=== PATIENT | male | born 1950 | race Caucasian/White ===

== ENCOUNTER 2018-12-11 07:30 | Inpatient (IN) | payer BC, MEDICARE ==
[2018-12-11] MEDS ORDERED: Celecoxib 200 MG Cap PO ONE (08:15)
[2018-12-11] MEDS ORDERED: Acetaminophen 500 MG Tab PO ONE (08:15)
[2018-12-11] MEDS ORDERED: Scopolamine 1.5 MG Transdermal Patch TRDERM ONE (08:15)
[2018-12-11] MEDS ORDERED: Gabapentin 300 MG Cap PO ONE (08:15)
[2018-12-11] MEDS ORDERED: Dextrose 5%-Lactated Ringers 1,000 ML IV SCH ×2 (08:45→15:00)
[2018-12-11] MEDS ORDERED: Albuterol/Ipratropium 3.0-0.5 MG/3 ML Neb Soln NEB ONE (09:00)
[2018-12-11] MEDS ORDERED: cefOXitin 2 GM in Sodium Chloride 0.9% 50 ML IV ONE ×2 (09:30→09:45)
[2018-12-11] MEDS ORDERED: Rocuronium 50 MG/5 ML Vial ONE ×2 (09:34→11:26)
[2018-12-11] MEDS ORDERED: Glycopyrrolate 0.2 MG/ML 5 ML MDV ONE (09:34)
[2018-12-11] MEDS ORDERED: Ondansetron 4 MG/2 ML SDV ONE (09:34)
[2018-12-11] MEDS ORDERED: Propofol 200 MG/20 ML SDV ONE (09:34)
[2018-12-11] MEDS ORDERED: Succinylcholine 200 MG/10 ML MDV ONE (09:34)
[2018-12-11] MEDS ORDERED: Dexamethasone 4 MG/ML SDV ONE (09:34)
[2018-12-11] MEDS ORDERED: fentaNYL 250 MCG/5 ML SDV ONE (09:34)
[2018-12-11] MEDS ORDERED: Neostigmine Methylsulfate 1 MG/ML 5 ML Syringe ONE (09:34)
[2018-12-11] MEDS ORDERED: Lidocaine 2% 100 MG/5 ML Syringe IVPUSH SCH (10:00)
[2018-12-11] MEDS ORDERED: Ketamine 50 MG in Sodium Chloride 0.9% 49.5 ML IV SCH (10:00)
[2018-12-11] MEDS ORDERED: Lidocaine 0.4%/D5W 2 GM/500 ML BAG IV SCH ×2 (10:00→15:15)
[2018-12-11] MEDS ORDERED: Ketamine 500 MG/5 ML MDV IV SCH (10:00)
[2018-12-11] MEDS ORDERED: Lactated Ringers 1,000 ML ONE ×2 (10:22→15:19)
[2018-12-11] MEDS ORDERED: cefOXitin 2 GM Vial ONE (11:12)
[2018-12-11] MEDS ORDERED: Scopolamine 1.5 MG Transdermal Patch ONE (14:06)
[2018-12-11] MEDS ORDERED: diphenhydrAMINE 50 MG/ML SDV IVPUSH PRN (14:51)
[2018-12-11] MEDS ORDERED: Metoclopramide 10 MG/2 ML SDV IVPUSH PRN (14:51)
[2018-12-11] MEDS ORDERED: Ondansetron 4 MG/2 ML SDV IVPUSH PRN (14:51)
[2018-12-11] MEDS ORDERED: Insulin Lispro 100 Unit/ML 3 ML KwikPen SUBCUT PRN (14:51)
[2018-12-11] MEDS ORDERED: Labetalol 20 MG/4 ML Syringe IVPUSH PRN (14:51)
[2018-12-11] MEDS ORDERED: hydrOXYzine HCl 100 MG/2 ML SDV IM PRN (14:51)
[2018-12-11] MEDS: Lactated Ringers 1,000 ML IV SCH (15:31)
[2018-12-11] MEDS ORDERED: MVI, Adult with Vitamin K 10 ML, Thiamine 200 MG, Chromium/Copper/Mang/Selen/Zn 1 ML in... IV SCH ×4 (16:00)
[2018-12-11] MEDS ORDERED: Pantoprazole 40 MG Vial IVPUSH SCH (16:00)
[2018-12-11] MEDS: Acetaminophen Soln 650 MG/20.3 ML UD Cup PO SCH ×2 (17:00→21:55)
[2018-12-11] MEDS: cefOXitin 2 GM in Sodium Chloride 0.9% 50 ML IV SCH (17:04)
[2018-12-11] MEDS: Heparin Sodium 5,000 Units/ML Vial SUBCUT SCH (17:05)
[2018-12-11] MEDS: Gabapentin 250 MG/5 ML Solution ML 470 ML Bottle PO SCH (20:34)
[2018-12-12] MEDS: cefOXitin 2 GM in Sodium Chloride 0.9% 50 ML IV SCH ×3 (00:35→11:27)
[2018-12-12] MEDS: Lactated Ringers 1,000 ML IV SCH ×2 (01:59→11:23)
[2018-12-12] MEDS: Heparin Sodium 5,000 Units/ML Vial SUBCUT SCH ×3 (02:51→17:07)
[2018-12-12] MEDS ORDERED: Iopamidol 612 MG/ML 50 ML SDV PO STA (04:03)
[2018-12-12] MEDS: Acetaminophen Soln 650 MG/20.3 ML UD Cup PO SCH ×4 (05:04→21:37)
--- NOTE | 2018-12-12 05:36 | CRLCR ---
INDICATION: RNY LEAK CHECK PRELIMINARY IMPRESSIONS: 1. No evidence of contrast extravasation is noted on 2 static submitted images. 2. Surgical drain is present in the left upper quadrant. Agree with preliminary reading. No additional findings. Dictated by: Juan Baker MD @ 12/13/2018 11:30:37 (Electronically Signed)
[2018-12-12] MEDS ORDERED: Ondansetron 4 MG Tab.DIS PO PRN (07:48)
[2018-12-12] MEDS ORDERED: diphenhydrAMINE 25 MG Cap PO PRN (07:50)
[2018-12-12] MEDS ORDERED: Albuterol 8 GM Inhaler INH PRN (08:08)
--- NOTE | 2018-12-12 09:32 | PN ---
DATE OF SERVICE: 12/12/2018 SUBJECTIVE: Juan is postoperative day 1 from Ivelisse-en-Y gastric bypass surgery. His upper GI was normal this morning. His lidocaine was discontinued due to being very sleepy. He has walked once and has sat on the chair for an hour or so during the night. He is voiding without difficulty. Blood sugar is 192 and the last one was 148. He did refuse his heparin. Currently takes Eliquis. REVIEW OF SYSTEMS: Remainder of review of systems negative for any pertinent positives and negatives. OBJECTIVE: GENERAL: Juan Almaguer is a pleasant 68-year-old male. He is sitting up in the chair. VITAL SIGNS: TPR is 99.4, 73, 16. Blood pressure 134/67. HEENT: Negative. NECK: Supple. HEART: Regular rate and rhythm. LUNGS: Clear. ABDOMEN: Dressings dry and intact on CHRISTA drain, drained 84 mL of a light pink drainage. Abdominal binder is on. EXTREMITIES: Without peripheral edema. ASSESSMENT: Diagnostic laparoscopy with laparoscopic Ivelisse-en-Y gastric bypass surgery, liver biopsy, repair of diaphragmatic hernia, excision of mediastinal lipoma, excision of nodule on the surface of the jejunojejunostomy, portal partial gastrectomy with a nodule, excision of the overlying nodule for morbid obesity, hepatomegaly, diaphragmatic hernia, mediastinal lipoma, foreshortened small bowel mesentery, nodule on surface of the proximal jejunum, nodule on proximal aspect of the gastric lesser curvature. Date of surgery 12/11/2018. PLAN: 1. Discontinue D5 LR. 2. Lactated Ringer's at 100 mL per hour. 3. We will continue to take heparin after discussion with Jarad Long MD. 4. Dressing off, may shower. 5. Step 2 gastric bypass diet without cereal. 6. Zofran 4 mg ODT q.4 hours p.r.n. nausea, Lasix 40 mg p.o. daily, and Aldactone 100 mg p.o. daily. 7. Communication order for 3 med cups, 1 q.20 minutes or 3 per hour, record at bedside. 8. Good pulmonary toilet. 9. We will evaluate p.r.n. or in a.m. Charlene Alvarez PA-C /[id number]
[2018-12-12] MEDS: Celecoxib 200 MG Cap PO SCH (09:41)
[2018-12-12] MEDS: Spironolactone 25 MG Tab PO SCH (09:41)
[2018-12-12] MEDS: Metoprolol Succinate 50 MG Tab.ER PO SCH (09:42)
[2018-12-12] MEDS: Furosemide 40 MG Tab PO SCH (09:42)
[2018-12-12] MEDS: SCOPOLAMINE PATCH CHECK TOP SCH (09:43)
[2018-12-12] MEDS: Gabapentin 250 MG/5 ML Solution ML 470 ML Bottle PO SCH ×3 (09:46→20:58)
[2018-12-12] MEDS ORDERED: Pantoprazole 40 MG Delayed-Release Granules 1 Packet PO SCH (16:00)
[2018-12-12] MEDS ORDERED: MVI, Adult with Vitamin K 10 ML, Thiamine 200 MG, Chromium/Copper/Mang/Selen/Zn 1 ML in... IV SCH ×4 (16:00)
[2018-12-12] MEDS ORDERED: Lidocaine 1% 2 ML ONE (22:00)
[2018-12-13] MEDS: Acetaminophen Soln 650 MG/20.3 ML UD Cup PO SCH ×2 (03:01→11:21)
[2018-12-13] MEDS: Heparin Sodium 5,000 Units/ML Vial SUBCUT SCH ×2 (03:01→11:21)
[2018-12-13] MEDS: Lactated Ringers 1,000 ML IV SCH (05:46)
[2018-12-13] MEDS: Spironolactone 25 MG Tab PO SCH (08:49)
[2018-12-13] MEDS: Metoprolol Succinate 50 MG Tab.ER PO SCH (08:49)
[2018-12-13] MEDS: Celecoxib 200 MG Cap PO SCH (08:49)
[2018-12-13] MEDS: Furosemide 40 MG Tab PO SCH (08:54)
[2018-12-13] MEDS: SCOPOLAMINE PATCH CHECK TOP SCH (08:56)
[2018-12-13] MEDS: Gabapentin 250 MG/5 ML Solution ML 470 ML Bottle PO SCH (08:58)
[2018-12-13] MEDS ORDERED: Magnesium Hydroxide 400 MG/5 ML Susp 30 ML Cup PO ONE (09:00)
[2018-12-13] MEDS ORDERED: Cyanocobalamin (Vitamin B12) 1,000 MCG/ML SDV IM ONE (09:00)
--- NOTE | 2018-12-13 09:36 | PN ---
DATE OF SERVICE: 12/13/2018 SUBJECTIVE: Juan is postoperative day 2 following a Ivelisse-en-Y gastric bypass surgery. Blood sugars were 104 and 103. Oral intake 1200. CHRISTA drain put out 60 mL of serosanguineous drainage. Juan has not had a bowel movement yet and is not passing flatus. He has been unsteady when he is up ambulating, requiring the use of the IV pole as well as 1 to 2 assist him. He states this morning that he is getting stronger. REVIEW OF SYSTEMS: Remainder of review of systems negative for any pertinent positives and negatives. OBJECTIVE: GENERAL: Juan Almaguer is a pleasant 68-year-old male. VITAL SIGNS: TPR 97.7, 74, 18 and blood pressure 110/68. HEENT: Negative. NECK: Supple. HEART: Regular rate and rhythm. LUNGS: Clear. ABDOMEN: Dressings dry and intact. Incisions look good. CHRISTA drain as above. Abdominal binder is on. EXTREMITIES: Without peripheral edema. ASSESSMENT: Diagnostic laparoscopy with laparoscopic Ivelisse-en-Y gastric bypass surgery, liver biopsy, repair of diaphragmatic hernia, excision of mediastinal lipoma, excision of nodule surface of the jejunostomy, portal partial gastrectomy with a nodule, excision of the overlying nodule for morbid obesity, hepatomegaly, diaphragmatic hernia, mediastinal lipoma, foreshortened small bowel mesenteric nodule on the surface of proximal jejunum, nodule on proximal aspect of the gastric lesser curvature. Date of surgery 12/11/2018. Surgeon, Jarad Long MD. PLAN: 1. Saline lock IV. 2. Milk of magnesia 30 mL followed by Dulcolax tablets 20 mg 1 hour after. 3. Continue to ambulate short distances. 4. Encouraged to eat slowly and to take tiny sips. 5. Good pulmonary toilet. 6. We will evaluate p.r.n. or in a.m. Charlene Alvarez PA-C /[id number]
[2018-12-13] MEDS ORDERED: Bisacodyl 5 MG Tab PO ONE (10:00)
--- NOTE | 2018-12-14 07:36 | DISCH ---
ADMISSION DIAGNOSES: Morbid obesity, asthma, iron deficiency anemia, hypertension, obstructive sleep apnea, adenocarcinoma of the prostate, depression, hypogonadism, sinus tachycardia, metabolic syndrome, atrial fibrillation, chronic anticoagulation therapy. Elevated liver function tests, BMI is 51.3. DISCHARGE DIAGNOSES: Diagnostic laparoscopy with laparoscopic Ivelisse-en-Y gastric bypass surgery, liver biopsy, repair of diaphragmatic hernia, excision of mediastinal lipoma and excision of nodule surface of the jejunostomy, portal partial gastrectomy with nodule, excision of overlying nodule. Postoperative Diagnoses: 1. Morbid obesity. 2. Hepatomegaly. 3. Diaphragmatic hernia. 4. Mediastinal lipoma. 5. Foreshortened small bowel mesenteric. 6. Nodule on the surface of the proximal jejunum. 7. Nodule on the proximal aspect of the gastric lesser curvature. Date of surgery 12/11/2018. Surgeon, Jarad Long MD. HISTORY: Juan Almaguer is a pleasant 68-year-old male with longstanding history of morbid obesity and increasing comorbidities. After preoperative evaluation and discussion of possible risks and possible complications, he wished to proceed with surgical procedure. HOSPITAL COURSE: Juan had his surgery on 12/11/2018. He had no operative complications. On postoperative day #1, he was started on step 2 gastric bypass diet. His dressing was taken off. He was able to shower. His pain was well managed on postoperative day 2. He had a bowel movement, received vitamin B12 1000 mcg IM injection. He had dietary instruction. Vital signs were stable. Blood sugars were 103 and 104, and he was able to be discharged to home. PHYSICAL EXAMINATION: GENERAL: Rosina is a pleasant 68-year-old male. VITAL SIGNS: Height is 5 feet 6 inches. Weight is 318 pounds. BMI is 51.3. TPR is 97.7, 68, 16 and blood pressure 124/77. HEENT: Negative. NECK: Supple. HEART: Regular rate and rhythm. LUNGS: Clear. ABDOMEN: Sutures intact 4x4 over CHRISTA drain. Abdominal binder is on. EXTREMITIES: Without peripheral edema. DISPOSITION: Discharged to home. CONDITION: Stable and improving. HOME MEDICATIONS: 1. Celebrex 200 mg p.o. daily for 14 days. 2. Eliquis 5 mg oral daily to start as directed by his primary care provider. 3. ProAir HFA 8.5 g inhalation 4 times a day as directed. 4. Protonix 40 mg p.o. daily. 5. Toprol-XL 50 mg p.o. daily. 6. Aldactone 100 mg p.o. daily. 7. Lasix 40 mg p.o. daily. 8. Tylenol 650 mg q.6 hours. DISCHARGE INSTRUCTIONS: Followup appointment with Charlene Alvarez PA-C on 12/25/2018 at 10:15 a.m. Appointment at [place], [place]. Diet: Step 2 gastric bypass diet with no cereal for 2 weeks until 12/25/2018. He is to drink 8 to 10 glasses of water a day. Activity: No lifting greater than 10 pounds for 2 weeks. Walk at least 6 times a day. Driving: Do not drive for 1 week. Shower/bathing: May shower. Notify provider if any fever, increased pain, nausea, or vomiting. Wound incision care: Keep site clean and dry. Wear abdominal binder for 2 weeks and then as desired. Other instruction: Use incentive spirometer 10 times every hour while awake.
--- NOTE | 2018-12-17 15:13 | OR ---
DATE OF PROCEDURE: 12/11/2018 PREOPERATIVE DIAGNOSIS: Morbid obesity. POSTOPERATIVE DIAGNOSES: 1. Morbid obesity. 2. Marked hepatomegaly. 3. Paraesophageal diaphragmatic hernia. 4. Mediastinal lipoma. 5. Foreshortened small bowel mesentery requiring small bowel resection to allow adequate mobility of jejunojejunostomy. 6. Peritoneal nodule on surface of proximal jejunum. 7. Nodule in the proximal aspect of gastric lesser curvature. OPERATIVE PROCEDURES: Diagnostic laparoscopy with: 1. Laparoscopic Ivelisse-en-Y gastric bypass with long-limb gastroenterostomy (13896). 2. Junior-cut needle liver biopsy (54809). 3. Repair of paraesophageal diaphragmatic hernia (05734). 4. Excision of mediastinal lipoma (96635). 5. Excision of nodule on surface of the proximal jejunum (09634). 6. Partial gastrectomy including excision of overlying nodule involving proximal aspect of gastric lesser curvature (85050). ANESTHESIA: General. INDICATION FOR PROCEDURE: This is a 68-year-old male presenting with longstanding morbid obesity and increasingly significant comorbidities. After preoperative evaluation and discussion, he wished to proceed with a gastric bypass procedure. Potential risks of the procedure including bleeding, infection, leaks from various GI tract closures, problems with bowel obstruction over time, as well as the possibility of cardiopulmonary, septic, or hemorrhagic complications leading to were discussed, and the patient wishes to proceed. DETAILS OF PROCEDURE: The patient was taken to the operating room and after general endotracheal anesthesia was induced, the abdomen was prepped and draped. The patient was converted to a lithotomy position. At 15 cm inferior and 5 cm left of the xiphoid process, a transverse incision was made, and the peritoneal cavity entered under direct vision with an Optiview trocar. Bilateral subcostal transversus abdominis plane blocks were then placed and 5 additional trocars were placed across the upper and mid-abdomen. Initial exploration showed marked hepatomegaly and Junior-Cut needle liver biopsies were obtained from the left lobe of the liver. Minimal bleeding from the biopsy sites was controlled with electrocautery. The small bowel was then identified at ligament of Treitz. Roughly 10 cm distal to the ligament of Treitz, the patient was noted to have a small clear nodule on the surface of the jejunum. This was excised and sent for histologic evaluation. This measured mostly around 2 or 3 mm in size. The small bowel was then traced out 150 cm distal to that point, where it was divided transversely with a MICAH stapler. Small bowel was then traced out additional 150 cm, where the [id number] enteroenterostomy was accomplished with an internal firing of the Endo-MICAH 60-mm stapler. Common opening was then closed transversely with the same stapler, and the angles of anastomosis and mesenteric defect approximated with some 0 Ethibond stitch, along with 4 mL of fibrin sealant. The divided end of the Ivelisse limb was then mobilized through an antecolic approach up to the level of the gastroesophageal junction without tension. The liver was then retracted anteriorly. The patient was noted to have a moderate-sized paraesophageal diaphragmatic hernia. This was involving perigastric fat and prolapse of some of the fundus in a plane anterior to the course of the esophagus. This was reduced. The peritoneum overlying was incised and reflected downward. A mediastinal lipoma was encountered, which was excised to allow more satisfactory closure of the crural defect, which was approximated anteriorly with 0 Ethibond sutures reinforced with PTFE pledgets. The patient was also noted to have a nodular lesion at the level of lesser curvature. The gastrointestinal balloon catheter was inflated to 15 mL and pulled up snugly against the EG junction. The point of development of the pouch was noted to be just superior to that nodule. At this point then, pouch was constructed with initial transverse firing of the MICAH stapler at the level of the cauterized kishore, where the lower end of the balloon catheter had been placed, which at that point then removed, and then completed with additional MICAH firings up to and through the angle of His. Upon completion of the staple lines, both were noted to be intact. The nodule was then excised off the surface of the stomach just below the gastric pouch staple line and sent as a separate specimen. On examination of this, it was felt to possibly be a gastrointestinal stromal tumor, which at this size, which was around 8 or 10 mm, it would be always benign, but at some risk for local recurrence. Given this, 1 or 2 cm segment of stomach around that was resected and sent as a separate specimen to provide a more adequate margin away from that nodule in the event that it may in fact be a gastrointestinal stromal tumor. The anvil of a 25-mm EEA stapler was passed through the mouth following its attachment to Ogle sump tube and then brought down into the gastric pouch. The divided end of the Ivelisse limb was then opened and the main body of EEA stapler was passed several centimeters into the Ivelisse limb, brought up the anvil and united with it, thus creating the gastrojejunostomy. Upon removal of the stapler, double donuts of mucosa were noted within it. Small bowel was closed off with a vascular staple line. Gastrojejunostomy was reinforced with some 3-0 Vicryl seromuscular stitch along with fibrin sealant. Leak test was accomplished with injection of 120 mL into the gastric pouch while it was submerged within antibiotic- containing saline solution. No leaks were identified. A single Vineet-Beck drain was then placed through the left lateral trocar site and positioned adjacent to the gastrojejunostomy up to the level of the splenic fossa. With no further problems noted, trocars removed and the peritoneal cavity was deflated. Incisions were closed with 4-0 Vicryl skin stitch and dressing applied. The patient was taken to the recovery room in a satisfactory condition. Jarad Long MD /[id number]
== END 2018-12-13 13:10 | disposition home or self-care (01) | DRG 403 ==
LOC: EDSTATUS 07:30 → JP.SDS 07:48 → JP.SDSSCHI 07:48 → JP.MS 14:18
PROVIDERS: ADMIT Surgery; ATTEND Surgery
PROC: 0D164ZA Bypass Stomach to Jejunum, Percutaneous Endoscopic Approach (ICD-10-PCS; principal; 2018-12-11)
PROC: 0DB64ZZ Excision of Stomach, Percutaneous Endoscopic Approach (ICD-10-PCS; 2018-12-11)
PROC: 0FB24ZX Excision of Left Lobe Liver, Percutaneous Endoscopic Approach, Diagnostic (ICD-10-PCS; 2018-12-11)
PROC: 0DBA4ZZ Excision of Jejunum, Percutaneous Endoscopic Approach (ICD-10-PCS; 2018-12-11)
PROC: 0BQT4ZZ Repair Diaphragm, Percutaneous Endoscopic Approach (ICD-10-PCS; 2018-12-11)
DX: E66.01 Morbid (severe) obesity due to excess calories (principal); Z68.43 Body mass index [BMI] 50.0-59.9, adult; J45.991 Cough variant asthma; G47.33 Obstructive sleep apnea (adult) (pediatric); R16.0 Hepatomegaly, not elsewhere classified; I10 Essential (primary) hypertension; I89.0 Lymphedema, not elsewhere classified; E61.1 Iron deficiency; F32.9 Major depressive disorder, single episode, unspecified; E29.1 Testicular hypofunction; I48.0 Paroxysmal atrial fibrillation; M19.90 Unspecified osteoarthritis, unspecified site; K21.9 Gastro-esophageal reflux disease without esophagitis; K44.9 Diaphragmatic hernia without obstruction or gangrene; H91.90 Unspecified hearing loss, unspecified ear; R73.9 Hyperglycemia, unspecified; D17.79 Benign lipomatous neoplasm of other sites; Z96.641 Presence of right artificial hip joint; Z91.048 Other nonmedicinal substance allergy status; Z79.01 Long term (current) use of anticoagulants; Z79.84 Long term (current) use of oral hypoglycemic drugs; Z79.899 Other long term (current) drug therapy
CPT/HCPCS: 36415; 74240; 82962; 86850; 86900; 86901; 88304; 88305; 88307; 88313; 94640; 94762; A9270-GY; C9113; J0131; J0171; J0330; J0694; J1100; J1644; J1815; J2001; J2405; J2704; J2710; J2795; J3010; J3411; J3420; J3490; J7042; J7050; J7120; J7620-GY; Q9967

== ENCOUNTER 2019-02-04 08:01 | Day surgery (SDC) | payer BC, MEDICARE ==
[2019-02-04] MEDS ORDERED: Propofol 200 MG/20 ML SDV ONE (08:06)
[2019-02-04] MEDS ORDERED: Midazolam 1 MG/ML 2 ML SDV ONE (08:06)
[2019-02-04] MEDS ORDERED: fentaNYL 100 MCG/2 ML SDV ONE (08:06)
[2019-02-04] MEDS ORDERED: Lactated Ringers 1,000 ML IV ONE (09:00)
[2019-02-04] MEDS ORDERED: Cyanocobalamin (Vitamin B12) 1,000 MCG/ML SDV IM ONE (09:30)
[2019-02-04] MEDS ORDERED: MVI, Adult with Vitamin K 10 ML, Thiamine 200 MG, Chromium/Copper/Mang/Selen/Zn 1 ML in... IV ONE ×4 (10:00)
[2019-02-04] MEDS ORDERED: Glycopyrrolate 0.2 MG/ML 2 ML SDV IVPUSH ONE (10:00)
[2019-02-04] MEDS ORDERED: Dexamethasone 4 MG/ML SDV ONE (11:04)
--- NOTE | 2019-02-07 12:51 | OR ---
DATE OF PROCEDURE: 02/04/2019 SURGEON: Jarad Long MD PREOPERATIVE DIAGNOSIS: Probable stricture at gastrojejunostomy. POSTOPERATIVE DIAGNOSIS: Mild stricture at gastrojejunostomy. OPERATIVE PROCEDURE: Upper gastrointestinal endoscopy with dilation of gastrojejunostomy (04816). ANESTHESIA: IV sedation. INDICATION FOR PROCEDURE: This is a 68-year-old status post Ivelisse-en-Y gastric bypass on 12/11/2018 who presents now with symptoms suggestive of stricture in his gastrojejunostomy. Plan is to proceed with upper GI endoscopy with dilation as indicated. Potential risks including bleeding and perforation were discussed, and the patient wishes to proceed. DETAILS OF PROCEDURE: The patient was taken to the operating room and placed in a left lateral decubitus position. IV sedation was administered after which the upper GI endoscope was passed orally through the length of the esophagus into the area of the gastric pouch. The scope could almost be passed through the gastrojejunostomy and a Bard gastrointestinal balloon catheter was centered across the anastomosis and inflated to 36-Yakut size. This was held in position for 1 minute after which the balloon catheter was deflated and withdrawn. Scope could easily be passed through the anastomosis. No complications were noted and the procedure concluded. The patient was taken to the recovery room in satisfactory condition. Jarad Long MD /[id number]
== END 2019-02-04 12:45 | disposition home or self-care (01) ==
LOC: JP.SDS 08:01
PROVIDERS: ATTEND Surgery
DX: K95.89 Other complications of other bariatric procedure (principal); N18.9 Chronic kidney disease, unspecified; G47.33 Obstructive sleep apnea (adult) (pediatric)
CPT/HCPCS: 43245; J1100; J2250; J2704; J3010; J3411; J3420; J3490; J7120